=== PATIENT | female | born 1945 | race Caucasian/White ===

== ENCOUNTER 2021-01-05 09:13 | Day surgery (SDC) | payer MEDICARE ==
[~2021-01-05 09:13] MED LIST: ACET-2119 PO; ALPR-149 PO; ARFO15VI NEB; BUDE0.256 NEB; BUPR100T7 PO; CALC600T18 PO; CITA40TA17 PO; FLUT16SP13 NAS; HYDR-4383 PO; HYDR25TA4 PO; MONT10TA97 PO; OMEP20CA15 PO; QUIN40TA14 PO; ROFL250T PO; SIMV-45 PO
[2021-01-05] MEDS ORDERED: fentaNYL/PF 50MCG/1 ML 2ML syringe ONE (09:19)
[2021-01-05] MEDS ORDERED: MIDAZolam 5mg/5ml vial ONE (09:19)
[2021-01-05 09:30] VITALS: BP 130/91
[2021-01-05] MEDS ORDERED: BUPR200T34 PO (09:36)
[2021-01-05] MEDS ORDERED: BUSP10TA3 PO (09:37)
[2021-01-05] MEDS ORDERED: ONDA4TAB12 PO (09:48)
[2021-01-05] MEDS ORDERED: MECL-159 PO (09:48)
[2021-01-05] MEDS ORDERED: AZEL205. BOTHNARES (09:51)
[2021-01-05] MEDS ORDERED: VITA1TAB97 PO (09:53)
[2021-01-05] MEDS ORDERED: LYSI500T11 PO (09:53)
[2021-01-05] MEDS ORDERED: KRIL1CAP21 PO (09:54)
[2021-01-05] MEDS ORDERED: OMEP-50 PO (09:55)
[2021-01-05] MEDS ORDERED: PANT-47 PO (09:58)
[2021-01-05 10:32] VITALS: BP 107/70
[2021-01-05 10:42] VITALS: BP 138/69
[2021-01-05 10:52] VITALS: BP 146/64
[2021-01-05 11:02] VITALS: BP 156/70
== END 2021-01-05 11:10 | disposition home or self-care (01) ==
LOC: GI LAB 09:13
PROVIDERS: ATTEND Internal Medicine Gastroenterology
DX: K52.9 Noninfective gastroenteritis and colitis, unspecified (principal); K62.1 Rectal polyp; K63.5 Polyp of colon; K57.30 Diverticulosis of large intestine without perforation or abscess without bleeding; K64.9 Unspecified hemorrhoids; F41.9 Anxiety disorder, unspecified; G47.33 Obstructive sleep apnea (adult) (pediatric); I10 Essential (primary) hypertension; Z79.899 Other long term (current) drug therapy; Z99.81 Dependence on supplemental oxygen
CPT/HCPCS: 45380; 45385; C1773; G0500; J2250; J3010; J7040; 99152; 99153; A4620

== ENCOUNTER 2022-06-15 17:09 | Emergency (ER) | payer MEDICARE ==
[~2022-06-15] VITALS: Ht 172.7 cm; Wt 95.6 kg
[~2022-06-15 17:09] MED LIST changes: -ACET-2119 PO; -ALPR-149 PO; +AZEL205. BOTHNARES; -BUPR100T7 PO; +BUPR200T34 PO; +BUSP10TA3 PO; -CITA40TA17 PO; -HYDR-4383 PO; +KRIL1CAP21 PO; +LYSI500T11 PO; +MECL-159 PO; +MONT-40 PO; -MONT10TA97 PO; -OMEP20CA15 PO; +OMEP20CA16 PO; +ONDA4TAB12 PO; +PANT-47 PO; -QUIN40TA14 PO; +QUIN40TA36 PO; -ROFL250T PO; +VITA1TAB97 PO
[2022-06-15 17:12] VITALS: BP 213/78
[2022-06-15] MEDS ORDERED: BEBTELOVIMAB 175 MG/2 ML VIAL IV ONE (18:40)
--- NOTE | 2022-06-15 20:20 | NUR ---
IV DC'D PT BEING DISCHARGED DRESSING APPLIED
== END 2022-06-15 20:21 | disposition home or self-care (01) ==
LOC: ER 17:10
DX: U07.1 COVID-19 (principal); I10 Essential (primary) hypertension; J44.9 Chronic obstructive pulmonary disease, unspecified; Z87.448 Personal history of other diseases of urinary system; Z79.899 Other long term (current) drug therapy
CPT/HCPCS: 99284; M0222; Q0222; 99283